=== PATIENT | male | born 1960 | race Asian ===

== ENCOUNTER 2017-11-09 13:31 | Inpatient (IN) | payer BC ==
[~2017-11-09] VITALS: Ht 175.3 cm; Wt 75.0 kg
[2017-11-09] MEDS ORDERED: SODIUM CHLORIDE FLUSH 10ML SYR IVF ONE (14:00)
[2017-11-09 14:07] LABS: BASOPHILS # (AUTO) 0.03 x10^3/uL (0-0.1); BASOPHILS % (AUTO) 1 % (0-1); EOSINOPHILS # (AUTO) 0.11 x10^3/uL (0-0.4); EOSINOPHILS % (AUTO) 2 % (1-7); LYMPHOCYTES # (AUTO) 2.71 x10^3/uL (1-3.4); LYMPHOCYTES % (AUTO) 42 % (22-44); MD NO; MEAN CORPUSCULAR HEMOGLOBIN 27.8 pg (27.5-34.5); MEAN CORPUSCULAR HGB CONC 33.1 g/dL (33.2-36.2); MEAN CORPUSCULAR VOLUME 83.9 fL (81-97); MEAN PLATELET VOLUME 7.9 fL (7.4-10.4); MONOCYTES # (AUTO) 0.55 x10^3/uL (0.2-0.8); MONOCYTES % (AUTO) 9 % (2-9); NEUTROPHILS # (AUTO) 3.09 x10^3/uL (1.8-6.8); NEUTROPHILS % (AUTO) 48 % (42-75); PLATELET COUNT 253 x10^3/uL (130-400); RED BLOOD COUNT 5.32 x10^6/uL (4.38-5.82); RED CELL DISTRIBUTION WIDTH 13.9 % (9.4-14.8)
[2017-11-09] MEDS ORDERED: [UNRECOGNIZED DRUG - REMARK] (14:07)
[2017-11-09 14:11] LABS: INTERNATIONAL NORMALIZED RATIO 1.03 (0.93-1.1); PROTHROMBIN TIME 10.7 Seconds (9.6-11.5)
[2017-11-09 14:15] LABS: ALANINE AMINOTRANSFERASE 24 U/L (12-78); ALBUMIN 3.9 g/dL (3.4-5.0); ANION GAP 7 mmol/L (5-15); CALCIUM 8.4 mg/dL (8.5-10.1); CHLORIDE 106 mmol/L (98-107); CREATININE 1.17 mg/dL (0.7-1.3)
[2017-11-09 14:19] LABS: ALKALINE PHOSPHATASE 72 U/L (45-117); BILIRUBIN,TOTAL 0.6 mg/dL (0.2-1.0); TOTAL PROTEIN 7.6 g/dL (6.4-8.2); TROPONIN I < 0.015 ng/mL (0.000-0.045)
[2017-11-09] MEDS ORDERED: hydrALAzine 20 MG/ML, 1ML IV ONE ×2 (15:00→15:30)
[2017-11-09] MEDS ORDERED: hydrALAzine 20 MG/ML, 1ML ONE ×2 (15:04→15:55)
[2017-11-09] MEDS ORDERED: ASPIRIN 81 MG TABLET CHEW ONE ×2 (15:55→16:05)
[2017-11-09] MEDS ORDERED: ASPIRIN 81 MG TABLET CHEW PO ONE (16:00)
[2017-11-09] MEDS ORDERED: BISACODYL 10 MG SUPP PR PRN (17:00)
[2017-11-09] MEDS ORDERED: POLYETHYLENE GLYCOL 17 GM PACKET PO PRN (17:00)
[2017-11-09] MEDS ORDERED: AMLODIPINE 5 MG TABLET PO ONE (17:00)
[2017-11-09] MEDS ORDERED: DOCUSATE 100 MG CAPSULE PO PRN (17:00)
[2017-11-09] MEDS ORDERED: ACETAMINOPHEN 325 MG TABLET PO PRN (17:00)
[2017-11-09] MEDS ORDERED: ENALAPRILAT 1.25 MG/ML, 2ML ONE (17:08)
[2017-11-09] MEDS ORDERED: AMLODIPINE 5 MG TABLET ONE (17:08)
[2017-11-09] MEDS: ENALAPRILAT 1.25 MG/ML, 2ML IVPush PRN (17:09)
[2017-11-09 17:19] LABS: TROPONIN I < 0.015 ng/mL (0.000-0.045)
[2017-11-09 17:59] VITALS: BP 185/127
[2017-11-09] MEDS: hydrALAzine 20 MG/ML, 1ML IVPush PRN (18:03)
[2017-11-09 18:34] VITALS: BP 169/112
[2017-11-09 20:19] VITALS: BP 159/99
[2017-11-09 20:31] LABS: MICROSCOPIC NOT IND
[2017-11-09 20:37] LABS: CULTURE INDICATED? NO
[2017-11-09 20:38] LABS: AMPHETAMINE SCREEN, URINE Negative (Negative); BARBITURATE SCREEN, URINE Negative (Negative); BENZODIAZEPINE SCREEN, URINE Negative (Negative); CANNABINOID SCREEN, URINE Negative (Negative); COCAINE SCREEN, URINE Negative (Negative); METHADONE SCREEN, URINE Negative (Negative); OPIATE SCREEN, URINE Negative (Negative)
[2017-11-09 22:45] LABS: TROPONIN I < 0.015 ng/mL (0.000-0.045)
[2017-11-10] VITALS (9 sets, daily range): BP systolic 149–181; BP diastolic 87–124
[2017-11-10 06:26] LABS: CHLORIDE 108 mmol/L (98-107)
[2017-11-10 06:27] LABS: BASOPHILS # (AUTO) 0.03 x10^3/uL (0-0.1); BASOPHILS % (AUTO) 0 % (0-1); EOSINOPHILS # (AUTO) 0.14 x10^3/uL (0-0.4); EOSINOPHILS % (AUTO) 2 % (1-7); LYMPHOCYTES # (AUTO) 2.08 x10^3/uL (1-3.4); LYMPHOCYTES % (AUTO) 27 % (22-44); MD NO; MEAN CORPUSCULAR HEMOGLOBIN 28.9 pg (27.5-34.5); MEAN CORPUSCULAR VOLUME 84.9 fL (81-97); MONOCYTES # (AUTO) 0.56 x10^3/uL (0.2-0.8); MONOCYTES % (AUTO) 7 % (2-9); NEUTROPHILS # (AUTO) 5.03 x10^3/uL (1.8-6.8); NEUTROPHILS % (AUTO) 64 % (42-75); PLATELET COUNT 232 x10^3/uL (130-400); RED BLOOD COUNT 5.09 x10^6/uL (4.38-5.82); RED CELL DISTRIBUTION WIDTH 14.1 % (9.4-14.8)
[2017-11-10 06:47] LABS: ANION GAP 9 mmol/L (5-15); CALCIUM 8.1 mg/dL (8.5-10.1); CHOL/HDL RATIO 5.1; CHOLESTEROL, TOTAL 192 mg/dL (140-239); CREATININE 0.97 mg/dL (0.7-1.3); HDL CHOL % 20 % (26-37); HDL CHOLESTEROL (DIRECT) 38 mg/dL (40-60); LDL CHOLESTEROL,CALCULATED 130 mg/dL (54-169); LDL/HDL RATIO 3.4 (0.5-3.0); TRIGLYCERIDES 121 mg/dL (50-200); VLDL CHOLESTEROL 24 mg/dL (0-25)
[2017-11-10] MEDS ORDERED: POTASSIUM CHLORIDE 20 MEQ TAB.ER.PRT PO ONE (09:30)
[2017-11-10] MEDS: hydrALAzine 20 MG/ML, 1ML IVPush PRN ×3 (14:22→21:04)
[2017-11-10] MEDS: ENALAPRILAT 1.25 MG/ML, 2ML IVPush PRN (15:54)
[2017-11-10] MEDS: AMLODIPINE 5 MG TABLET PO SCH (21:02)
[2017-11-11] VITALS (11 sets, daily range): BP systolic 135–170; BP diastolic 77–111
[2017-11-11] MEDS: AMLODIPINE 5 MG TABLET PO SCH ×2 (09:44→21:02)
[2017-11-11] MEDS: hydrALAzine 20 MG/ML, 1ML IVPush PRN (12:37)
[2017-11-11] MEDS ORDERED: LISINOPRIL 20 MG TABLET PO SCH (13:30)
[2017-11-11] MEDS ORDERED: POTASSIUM CHLORIDE 20 MEQ TAB.ER.PRT PO ONE (14:30)
[2017-11-12 00:15] VITALS: BP_SYST 149; BP_SYST 164; BP_DIAS 115; BP_DIAS 98
[2017-11-12] MEDS: ENALAPRILAT 1.25 MG/ML, 2ML IVPush PRN (00:28)
[2017-11-12 01:31] VITALS: BP 155/98
[2017-11-12 06:00] LABS: CALCIUM 8.4 mg/dL (8.5-10.1); CHLORIDE 110 mmol/L (98-107)
[2017-11-12 06:02] LABS: ANION GAP 7 mmol/L (5-15); CREATININE 0.98 mg/dL (0.7-1.3)
[2017-11-12 07:27] VITALS: BP 164/108
[2017-11-12] MEDS: AMLODIPINE 5 MG TABLET PO SCH (07:48)
[2017-11-12] MEDS ORDERED: LISINOPRIL 20 MG TABLET PO SCH (09:00)
[2017-11-12 09:25] VITALS: BP 150/90
[2017-11-12] MEDS ORDERED: LISI-170 PO (12:36)
[2017-11-12] MEDS ORDERED: AMLO5TAB7 PO (12:36)
== END 2017-11-12 14:40 | disposition home or self-care (01) | DRG 305 ==
LOC: ED 15:50 → EDIP 15:51 → ED 16:12 → 5SO 17:24 → DCLOUNGE 11-12 14:24
PROVIDERS: ADMIT Hospitalist; ATTEND Hospitalist
DX: I11.9 Hypertensive heart disease without heart failure (principal); I51.7 Cardiomegaly; E87.6 Hypokalemia; E87.70 Fluid overload, unspecified; Z82.49 Family history of ischemic heart disease and other diseases of the circulatory system
CPT/HCPCS: 36415; 71045; 80048; 80053; 80061; 80307; 81003; 83735; 83880; 84100; 84439; 84443; 84484; 85025; 85610; 93005; 93306; 96374; 96375; 96376; 99285; G0378; J0360